=== PATIENT | male | born 1955 | race Hispanic/Latino ===

== ENCOUNTER 2021-03-30 23:09 | Emergency (ER) | payer MEDICARE ==
[2021-03-31] MEDS ORDERED: SODIUM CHLORIDE 0.9% 500ML 1,000 ML IV ONE (01:50)
[2021-03-31 01:54] LABS: BASOPHILS % (AUTO) 0.6 % (0.0-5.0); EOSINOPHILS % (AUTO) 0.1 % (0.0-8.0); HEMATOCRIT 45.4 % (42-54); MEAN CORPUSCULAR HEMOGLOBIN 28.5 pg (27.0-33.0); MEAN CORPUSCULAR HGB CONC 32.8 g/dL (32.0-36.0); MEAN CORPUSCULAR VOLUME 86.8 fL (79-99); MONOCYTES % (AUTO) 8.2 % (3.0-13.0); NEUTROPHILS % (AUTO) 78.7 % (40.0-77.0); PLATELET COUNT (AUTO) 308 K/uL (130-400); RED BLOOD CELL COUNT(AUTO) 5.23 MIL/uL (4.50-6.20); RED CELL DISTRIBUTION WIDTH 12.6 % (11.0-15.5)
[2021-03-31 02:04] LABS: CREATININE 1.2 mg/dL (0.5-1.5); POTASSIUM 4.6 mmol/L (3.5-5.1)
[2021-03-31 02:06] LABS: INR 1.12 (0.85-1.15); PROTHROMBIN TIME 12.1 SEC (9.6-11.6)
[2021-03-31 02:07] LABS: PARTIAL THROMBOPLASTIN TIME 22.2 SEC (26.3-35.5)
[2021-03-31 02:09] LABS: ALBUMIN 4.2 g/dL (3.5-5.0); BILIRUBIN,TOTAL 0.9 mg/dL (0.2-1.0); TOTAL PROTEIN, SERUM 7.9 g/dL (6.0-8.3)
[2021-03-31 03:20] LABS: APPEARANCE,URINE Cloudy (CLEAR); BILIRUBIN,URINE Small (NEGATIVE); COLOR,URINE Dark Yellow (YELLOW); GLUCOSE, URINE (UA) Negative (NEGATIVE); KETONES,URINE Trace mg/dL (NEGATIVE); LEUKOCYTE ESTERASE ,URINE Trace (NEGATIVE); NITRATE,URINE Negative (NEGATIVE); OCCULT BLOOD,URINE Negative (NEGATIVE); PROTEIN,URINE Trace mg/dL (NEGATIVE)
[2021-03-31 03:23] LABS: BACTERIA,URINE Few /HPF (None Seen); MUCUS,URINE Many LPF (None Seen); RBC,URINE None Seen /HPF (0-1); SQUAMOUS EPITHELIAL CELL,UR Moderate /HPF (0-2); WBC,URINE 0-1 /HPF (0-1)
[2021-03-31] MEDS ORDERED: KETOROLAC TROMETHAMINE 30MG/ML ONE (04:03)
[2021-03-31] MEDS ORDERED: CEFTRIAXONE SODIUM 1 GM ONE (04:03)
== END 2021-03-31 04:20 | disposition home or self-care (01) ==
LOC: EDH 23:09
DX: S39.012A Strain of muscle, fascia and tendon of lower back, initial encounter (principal); N39.0 Urinary tract infection, site not specified; I10 Essential (primary) hypertension; E11.9 Type 2 diabetes mellitus without complications; F31.9 Bipolar disorder, unspecified; F03.90 Unspecified dementia, unspecified severity, without behavioral disturbance, psychotic disturbance, mood disturbance, and anxiety; R42 Dizziness and giddiness; W18.39XA Other fall on same level, initial encounter; Y93.01 Activity, walking, marching and hiking; Y92.89 Other specified places as the place of occurrence of the external cause; Y99.8 Other external cause status
CPT/HCPCS: 36415; 70450; 71045; 74176; 80053; 81001; 82550; 83605; 83690; 85025; 85610; 85730; 93005; 96361; 96374; 96375; 99285; J0696; J1885; J7040

== ENCOUNTER 2021-07-09 20:36 | Inpatient (IN) | payer MEDICARE ==
[~2021-07-09] VITALS: Ht 170.2 cm; Wt 77.1 kg
[~2021-07-09 20:36] MED LIST: ATOR40TA69 PO; BUPR200T34 PO; DONE10TA43 PO; FLUO40CA49 PO; FOLI0.8T2 PO; MEGE40L PO; SENN-295 PO; VITAD50000 PO
[2021-07-09 20:44] VITALS: BP 109/66
[2021-07-09] MEDS ORDERED: CEFTRIAXONE 2GM VIAL IVP ONE (21:00)
[2021-07-09] MEDS ORDERED: DEXAMETHASONE SOD PHOSPHATE 4 MG/ML 1ML VIAL IVP SCH (21:00)
[2021-07-09] MEDS ORDERED: 0.9%NACL 50ML 50 ML IV ONE (21:01)
[2021-07-09 21:08] LABS: BASOPHILS % (AUTO) 0.7 % (0.0-5.0); EOSINOPHILS % (AUTO) 0.2 % (0.0-8.0); HEMATOCRIT 49.9 % (42-54); LYMPHOCYTES % (AUTO) 17.1 % (21.0-51.0); MEAN CORPUSCULAR HEMOGLOBIN 28.8 pg (27.0-33.0); MEAN CORPUSCULAR HGB CONC 32.1 g/dL (32.0-36.0); MEAN CORPUSCULAR VOLUME 89.7 fL (79-99); MONOCYTES % (AUTO) 1.4 % (3.0-13.0); NEUTROPHILS % (AUTO) 80.4 % (40.0-77.0); PLATELET COUNT (AUTO) 442 K/uL (130-400); RED BLOOD CELL COUNT(AUTO) 5.56 MIL/uL (4.50-6.20); RED CELL DISTRIBUTION WIDTH 16.9 % (11.0-15.5); WHITE BLOOD COUNT (AUTO) 4.2 K/uL (4.8-10.8)
[2021-07-09 21:10] LABS: APPEARANCE,URINE SL CLOUDY (CLEAR); BILIRUBIN,URINE SMALL (NEGATIVE); COLOR,URINE YELLOW (YELLOW); GLUCOSE, URINE (UA) NEGATIVE (NEGATIVE); KETONES,URINE 15 mg/dL (NEGATIVE); LEUKOCYTE ESTERASE ,URINE TRACE (NEGATIVE); NITRATE,URINE NEGATIVE (NEGATIVE); OCCULT BLOOD,URINE NEGATIVE (NEGATIVE); PROTEIN,URINE 30 mg/dL (NEGATIVE); UROBILINOGEN,URINE >=8.0 mg/dL (0.2-1.0)
[2021-07-09 21:12] LABS: ABG BASE EXCESS -17.6 mmol/L (-2.0-3.0); ABG HCO3 10.7 mmol/L (21.0-28.0); ABG OXYGEN SATURATION 86.1 % (95.0-99.0); ABG PCO2 34 mmHg (35-48)
[2021-07-09 21:18] LABS: AMORPHOUS SEDIMENT,UR Many /LPF (None Seen); BACTERIA,URINE Few /HPF (None Seen); MUCUS,URINE Moderate LPF (None Seen); SQUAMOUS EPITHELIAL CELL,UR Moderate /HPF (0-2)
[2021-07-09] MEDS ORDERED: 0.9%NACL 1000ML 1,000 ML IV ONE ×3 (21:18→23:04)
[2021-07-09 21:24] LABS: CREATININE 1.6 mg/dL (0.5-1.5); POTASSIUM 4.5 mmol/L (3.5-5.1)
[2021-07-09 21:27] LABS: INR 1.21 (0.85-1.15)
[2021-07-09 21:29] LABS: ALBUMIN 3.8 g/dL (3.5-5.0); BILIRUBIN,TOTAL 1.2 mg/dL (0.2-1.0); TOTAL PROTEIN, SERUM 7.7 g/dL (6.0-8.3)
[2021-07-09] MEDS ORDERED: NOREPINEPHRINE 4MG/NS 250ML 250 ML IV ONE (21:29)
[2021-07-09] MEDS ORDERED: SODIUM BICARB 50MEQ 50ML VIAL 50 ML ONE (21:32)
[2021-07-09 21:37] LABS: B-TYPE NATRIURETIC PEPTIDE 71 pg/mL (0-100)
[2021-07-09 21:45] VITALS: BP 90/69
[2021-07-09 21:49] LABS: PARTIAL THROMBOPLASTIN TIME 18.2 SEC (26.3-35.5)
[2021-07-09 22:30] VITALS: BP 116/72
[2021-07-09 23:01] VITALS: BP 119/62
[2021-07-09 23:38] VITALS: BP 132/78
[2021-07-10 00:35] LABS: ABG BASE EXCESS -5.9 mmol/L (-2.0-3.0); ABG HCO3 17.5 mmol/L (21.0-28.0); ABG OXYGEN SATURATION 94.1 % (95.0-99.0); ABG PCO2 29 mmHg (35-48)
[2021-07-10 01:54] VITALS: BP 129/72
[2021-07-10] MEDS ORDERED: ONDANSETRON 4MG INJ IV PRN (03:30)
[2021-07-10] MEDS ORDERED: 0.9% NACL 250ML IVPB SCH (03:30)
[2021-07-10] MEDS ORDERED: GLUCAGON 1MG KIT 1 MG ML IM PRN (03:30)
[2021-07-10] MEDS ORDERED: AZITHROMYCIN 500MG VIAL IVPB SCH (03:30)
[2021-07-10] MEDS ORDERED: LACTATED RINGERS 1000ML 1,000 ML IV SCH (03:30)
[2021-07-10] MEDS ORDERED: DEXTROSE 50%-WATER 50 ML DISP.SYRIN IV PRN (03:30)
[2021-07-10] MEDS ORDERED: IPRATROPIUM/ALBUTEROL SULFATE 3 ML SOLUTION IH SCH (03:30)
[2021-07-10] MEDS ORDERED: ACETAMINOPHEN 325 MG TAB PO PRN ×2 (03:30)
[2021-07-10] MEDS ORDERED: NITROGLYCERIN 0.4 MG SL TAB SL PRN (03:30)
[2021-07-10] MEDS ORDERED: 0.9%NACL 1000ML 1,000 ML IV SCH (03:30)
[2021-07-10] MEDS ORDERED: MORPHINE 2 MG SYG IVP ONE (04:00)
[2021-07-10] MEDS ORDERED: MORPHINE 2 MG SYG ONE (04:01)
[2021-07-10 04:06] VITALS: BP 119/65
[2021-07-10 04:52] LABS: HEMATOCRIT 43.3 % (42-54); MEAN CORPUSCULAR HEMOGLOBIN 28.5 pg (27.0-33.0); MEAN CORPUSCULAR VOLUME 86.3 fL (79-99); PLATELET COUNT (AUTO) 340 K/uL (130-400); RED BLOOD CELL COUNT(AUTO) 5.02 MIL/uL (4.50-6.20); RED CELL DISTRIBUTION WIDTH 16.3 % (11.0-15.5); WHITE BLOOD COUNT (AUTO) 1.8 K/uL (4.8-10.8)
[2021-07-10 05:15] LABS: HEMOGLOBIN A1C 5.6 % (4.0-6.0)
[2021-07-10 05:23] LABS: ALBUMIN 2.7 g/dL (3.5-5.0); BILIRUBIN,TOTAL 1.1 mg/dL (0.2-1.0); CREATININE 1.7 mg/dL (0.5-1.5); CRP QUANTITATIVE 72.2 mg/L (0.00-9.0); MAGNESIUM 1.9 mg/dL (1.80-2.40); TOTAL PROTEIN, SERUM 5.8 g/dL (6.0-8.3); TROPONIN I 0.07 ng/mL (0.00-0.06)
[2021-07-10 05:26] LABS: POTASSIUM 2.7 mmol/L (3.5-5.1)
[2021-07-10] MEDS ORDERED: AZITHROMYCIN 500MG+NS 250ML 250 ML IV ONE (05:44)
[2021-07-10 05:50] VITALS: BP 103/74
[2021-07-10] MEDS ORDERED: POTASSIUM CHLORIDE 10MEQ/100ML 10 MEQ/100 ML ML IV SCH ×2 (06:00)
[2021-07-10] MEDS ORDERED: INSULIN HUMULIN R 100 UNIT/ML 3ML SQ SCH (06:00)
[2021-07-10 06:22] LABS: BAND NEUTROPHILS % (MANUAL) 4 % (0-2); LYMPHOCYTES % (MANUAL) 26 % (22-44); MAN.DIFF COMMENT-IMPRESSION MANUAL DIFFERENTIAL; METAMYELOCYTES % 2 % (0-0); MONOCYTES % (MANUAL) 10 % (2-9); MYELOCYTES % 2 % (0-0); REACTIVE LYMPHOCYTES 2 % (0-0); SEGMENTED NEUTROPHILS % 54 % (40-70)
[2021-07-10 06:23] LABS: PLATELET MORPHOLOGY COMMENT N
[2021-07-10] MEDS ORDERED: DEXTROSE 5%-WATER 1,000 ML IV SCH (08:30)
[2021-07-10] MEDS ORDERED: KCL 20 MEQ ERTAB PO ONE (08:30)
[2021-07-10] MEDS ORDERED: HEPARIN 5,000 UNIT VIAL SQ SCH (09:00)
[2021-07-10] MEDS ORDERED: FAMOTIDINE 20MG VIAL IV SCH (09:00)
[2021-07-10] MEDS ORDERED: EPINEPHRINE 1MG SYG 10ML IVP ONE (13:57)
[2021-07-10] MEDS ORDERED: DEXAMETHASONE SOD PHOSPHATE 4 MG/ML 1ML VIAL IVP SCH (21:00)
[2021-07-10] MEDS ORDERED: CEFTRIAXONE 2GM VIAL IVP SCH (21:00)
== END 2021-07-10 06:20 | DRG 871 ==
LOC: EDH 20:36 → EDHIP 07-10 03:03
PROVIDERS: ADMIT Internal Medicine; ATTEND Internal Medicine
PROC: 5A09357 Assistance with Respiratory Ventilation, Less than 24 Consecutive Hours, Continuous Positive Airway Pressure (ICD-10-PCS; principal; 2021-07-09)
PROC: 5A12012 Performance of Cardiac Output, Single, Manual (ICD-10-PCS; 2021-07-10)
PROC: 0BH17EZ Insertion of Endotracheal Airway into Trachea, Via Natural or Artificial Opening (ICD-10-PCS; 2021-07-10)
DX: A41.9 Sepsis, unspecified organism (principal); R65.21 Severe sepsis with septic shock; J18.9 Pneumonia, unspecified organism; J96.01 Acute respiratory failure with hypoxia; N39.0 Urinary tract infection, site not specified; E87.2 Acidosis; N17.9 Acute kidney failure, unspecified; F32.9 Major depressive disorder, single episode, unspecified; Z66 Do not resuscitate; F03.90 Unspecified dementia, unspecified severity, without behavioral disturbance, psychotic disturbance, mood disturbance, and anxiety; R73.9 Hyperglycemia, unspecified; E78.00 Pure hypercholesterolemia, unspecified; I10 Essential (primary) hypertension; Z20.822 Contact with and (suspected) exposure to COVID-19
CPT/HCPCS: 31500; 36415; 36600; 71045; 80053; 81001; 82550; 82728; 82803; 83036; 83605; 83615; 83735; 83874; 83880; 84145; 84484; 85025; 85378; 85610; 85730; 86140; 87040; 87077; 87088; 87186; 87635; 87804; 92950; 93005; 94660; C9803; G0378; J0171; J0456; J0696; J1100; J3490; J7030; J7120